=== PATIENT | female | born 1965 | race Caucasian/White ===

== ENCOUNTER 2018-08-05 13:36 | Emergency (ER) | payer BC ==
[~2018-08-05] VITALS: Ht 152.4 cm; Wt 68.5 kg
[2018-08-05 13:40] VITALS: Ht 152.4 cm; Wt 68.5 kg
[2018-08-05] MEDS ORDERED: ALBUTEROL 0.5% (NEB) 2.5 MG/0.5 ML AMP INH STA (14:00)
[2018-08-05] MEDS ORDERED: IPRATROPIUM (NEB) 0.5 MG/2.5 ML AMP INH STA (14:00)
[2018-08-05] MEDS ORDERED: LISI-471 PO (14:17)
[2018-08-05] MEDS ORDERED: ATOR20TA38 PO (14:17)
[2018-08-05] MEDS ORDERED: BECL10.62 IH (14:17)
[2018-08-05] MEDS ORDERED: ALBU18HF INHALATION (14:18)
[2018-08-05] MEDS ORDERED: DEXAMETHASONE 10 MG/ML 1 ML INJ IM ONE (14:30)
--- NOTE | 2018-08-05 14:45 | ERD ---
ER Documentation Chief Complaint Chief Complaint SOB, wheezing X 1 day, Hx asthma, rescue inhaler not working HPI 53-year-old female with a history of asthma complaining of shortness of breath and wheezing since yesterday, getting worse. Her inhaler is not helping. She is not sure if she has a cold. Otherwise history is limited as she is in significant respiratory distress. ROS Limited due to respiratory distress Medications Home Meds Active Scripts Prednisone* (Prednisone*) 20 Mg Tab, 60 MG PO DAILY for 5 Days, TAB Prov:JOSE CAMPBELL MD 08/05/18 Reported Medications Albuterol Sulfate* (Ventolin HFA*) 18 Gm Hfa.aer.ad, 2 PUFF INHALATION Q4H, #1 INHALER 08/05/18 Beclomethasone Dipropionate (Qvar Redihaler (80 MCG)) 10.6 Gm Hfa.aeroba, 10.6 GM IH BID, INH 08/05/18 Lisinopril* (Lisinopril*) 20 Mg Tablet, 20 MG PO DAILY, #30 TAB 08/05/18 Atorvastatin Calcium* (Atorvastatin Calcium*) 20 Mg Tablet, 20 MG PO QHS, #30 TAB 08/05/18 Allergies Allergies: Coded Allergies: aspirin (Unverified Allergy, Unknown, 08/05/18) Uncoded Allergies: ASA (Allergy, Unknown, 08/05/18) PMhx/Soc Medical and Surgical Hx: Unable to obtain History of Surgery: Yes (APPENDECTOMY) Anesthesia Reaction: No Hx Neurological Disorder: No Hx Respiratory Disorders: Yes (ASTHMA) Hx Cardiac Disorders: Yes (HTN, HDL) Hx Psychiatric Problems: No Hx Miscellaneous Medical Probl: No Hx Alcohol Use: No Hx Substance Use: No Hx Tobacco Use: No Smoking Status: Never smoker FmHx Unable to obtain Physical Exam Vitals Vital Signs Date Temp Pulse Resp B/P (MAP) Pulse Ox O2 O2 Flow FiO2 Time Delivery Rate 08/05/18 98.6 126 14 106/65 99 Room Air 15:59 (79) 08/05/18 90 22 99 21 14:09 08/05/18 98.6 127 24 149/81 99 13:40 (103) Physical Exam Const: sitting up in bed, in respiratory distress, somewhat clammy, frequently coughing Head: Atraumatic Eyes: Normal Conjunctiva ENT: Normal External Ears, Nose and Mouth. Neck: Full range of motion. No meningismus. Resp: Tachypneic. Accessory muscle usage noted. Diminished breath sounds bilaterally with end expiratory wheezing. No rales or rhonchi Cardio: Tachycardic with regular d rhythm, no murmurs Abd: Soft, non tender, non distended. Normal bowel sounds Skin: No cyanosis. warm, clammy.No petechiae or rashes Back: No midline or flank tenderness Ext: No cyanosis, or edema Neur: Awake and alert, mentating normally, moving all extremities Psych: Normal Mood and Affect Results 24 hrs Current Medications Medications Dose Sig/Jana Start Time Status Last (Trade) Ordered Route PRN Stop Time Admin Dose Reason Admin Albuterol 15 mg ONCE STAT 08/05/18 DC 08/05/18 (Proventil INH 14:00 14:09 0.5% (Neb)) 08/05/18 14:02 Ipratropium 1 mg ONCE STAT 08/05/18 DC 08/05/18 [place] INH 14:00 14:09 (Atrovent 08/05/18 14:02 0.02% (Neb)) 10 mg ONCE ONCE 08/05/18 DC 08/05/18 Dexamethasone IM 14:30 14:09 (Decadron) 08/05/18 14:31 Procedures/MDM The patients shortness of breath is secondary to an asthma exacerbation. Vitals were notable for tachypnea and tachycardia. Considered URI, pneumonia, allergic reaction, COPD, PE, ACS, pericardial effusion but less likely based on history and physical. Nebulized albuterol/ipratropium ordered and steroids administered. Upon reassessment, patients symptoms and exam showed improvement. Patient is stable for discharge with outpatient treatment and continued PCP follow up. Upon discharge the patient is tachycardic which is likely secondary to the albuterol administration. I do not suspect PE or acute infection. Patient's blood pressure was elevated (>120/80) but appears stable without evidence of hypertension emergency or urgency. The patient was counseled about the risks of hypertension and urged to pursue outpatient monitoring and therapy within a week with their primary care physician. Departure Diagnosis: Primary Impression: Acute asthma exacerbation Asthma severity: moderate Asthma persistence: unspecified Qualified Codes: J45.901 - Unspecified asthma with (acute) exacerbation Condition: JOSE Pantoja MD August 05, 2018 14:45
[2018-08-05] MEDS ORDERED: PRED20TA PO (15:48)
[2018-08-05 15:59] VITALS: BP 106/65; PULSE 126; RESP 14
== END 2018-08-05 15:59 | disposition home or self-care (01) ==
LOC: E/R 13:36
DX: J45.901 Unspecified asthma with (acute) exacerbation (principal); I10 Essential (primary) hypertension
CPT/HCPCS: 94644; 96372; 99284; J1100